=== PATIENT | male | born 1935 | race African-American/Black ===

== ENCOUNTER 2020-08-20 20:27 | Emergency (ER) | payer OTHER ==
[~2020-08-20] VITALS: Ht 177.8 cm; Wt 50.0 kg
[2020-08-20] MEDS ORDERED: SODIUM CHLORIDE 0.9% 1,000 ML IV ONE (21:15)
[2020-08-20 23:40] LABS: HEMATOCRIT. 41.6 % (42.0-52.0); HEMOGLOBIN. 13.7 g/dL (14.0-18.0); MEAN CORPUSCULAR HEMOGLOBIN 36.9 pg (28.0-32.0); MEAN CORPUSCULAR VOLUME 112.1 fL (80.0-94.0); MEAN PLATELET VOLUME 8.4 fl (7.4-10.4); PLATELET 222 x1000/uL (130-400); RED BLOOD CELL COUNT 3.71 mill/uL (4.7-6.1); RED CELL DISTRIBUTION WIDTH 15.4 % (11.6-14.6)
[2020-08-20 23:50] LABS: CHLORIDE 93 mEq/L (98-107)
[2020-08-20 23:55] LABS: PROTHROMBIN TIME 10.9 sec (9.6-11.0)
[2020-08-21 00:34] LABS: NUCLEATED RED BLOOD CELLS 3 /100 WBC
[2020-08-21 00:35] LABS: PLATELET ESTIMATE NORMAL
[2020-08-21] MEDS ORDERED: SODIUM CHLORIDE 0.9% 250 ML IV ONE (05:15)
[2020-08-21 05:26] VITALS: BP 81/50
== END 2020-08-21 06:38 | disposition short-term general hospital (02) ==
LOC: ER 20:27
DX: I13.2 Hypertensive heart and chronic kidney disease with heart failure and with stage 5 chronic kidney disease, or end stage renal disease (principal); R41.82 Altered mental status, unspecified; R53.1 Weakness; E11.22 Type 2 diabetes mellitus with diabetic chronic kidney disease; N18.6 End stage renal disease; Z99.2 Dependence on renal dialysis; I25.2 Old myocardial infarction
CPT/HCPCS: 36415; 70450; 71045; 80053; 82140; 82962; 84443; 84484; 85025; 85610; 87040; 93005; 96360; 99285; J7030; J7050